=== PATIENT | male | born 1965 | race Caucasian/White ===

== ENCOUNTER 2023-08-27 09:16 | Emergency (ER) | payer OTHER, SELFPAY ==
[2023-08-27 09:41] VITALS: BP 115/76
--- NOTE | 2023-08-27 09:44 | ED.GENMED ---
History of Present Illness
General
Chief Complaint: Musculo-Skeletal Complaint
Time Seen by Provider: 08/27/23 09:43
History of Present Illness
History of Present Illness:
HPI: The patient presents with right knee swelling. There was no direct trauma but he was up and down on a ladder and had more physical activity recently while working at [employer]. There has been no fevers. He takes aspirin for cardiovascular
prevention.
EXAM:
GENERAL: Well appearing in no distress
HEENT: Moist oral mucosa
NEUROLOGIC: Decreased active range of motion at the right knee into flexion and extension due to pain
PSYCHIATRIC: Appropriate mental status, normal insight and judgement
EXTREMITIES: Moderate right knee joint effusion with no overlying warmth or erythema
SKIN: No rash, no lesions
TIME OF INITIAL ENCOUNTER: 10:30 AM
NUMBER AND COMPLEXITY OF PROBLEMS ADDRESSED AT THE ENCOUNTER
� Chronic conditions affecting care: Thyroid disease patient this is an acute problem
� Acute Exacerbation and/or Progression of Chronic Illness: This is an acute problem
� Differential Diagnosis includes: Nonspecific knee joint effusion, meniscal injury, ACL injury, osteoarthritis, periprosthetic distal femur fracture, highly doubt septic joint, hemarthrosis
AMOUNT AND/OR COMPLEXITY OF DATA TO BE REVIEWED AND ANALYZED
� I performed an independent evaluation of and my interpretation is:
EKG:
CT:
X-rays: I personally viewed x-rays and see no acute abnormality
Laboratory Studies: monosodium urate crystals
Other:
� Review of other/old records: I reviewed records�the patient was here with a hip fracture in January 2020
� Clinical information was obtained by an independent historian: Spoke to his partner at bedside
� Prescriptions/Medications Considered but not given:
� Further testing considered but not performed:
RISK OF COMPLICATIONS AND/OR MORBIDITY OR MORTALITY OF PATIENT MANAGEMENT
� Social determinants of health affecting care:
� Discussion with other providers:
� Escalation of care including admission/observation vs risk of discharge considered: The patient had about 80 mL of bloody fluid withdrawn�this was not a traumatic tap and blood was obtained immediately after needle entry.
Monosodium urate crystals noted�I called the patient to inform him of the possibility of gout and recommended NSAIDs. He is to continue holding aspirin. He is to follow-up with orthopedics. We also placed him in Sotero wrap and gave him a walker.
Past History
Past History
ED Past Medical History: Cancer (Thyroid) and Hypothyroidism; Negative Asthma, HTN, Hypercholesterolemia or NIDDM
ED Past Surgical History: Other (total thyroidectomy)
Social History
Tobacco: Smoker
Alcohol: Occasional
Personal:
Living: with family
Employment: Employed
Phy Exam
Physical Exam
Physical Exam:
See HPI
Course
Orders/Labs/Results
Orders:
Orders
08/27/23 09:57
CR Femur - Right Min 2 Vw Urgent
Comment:
Reason For Exam: pain swelling knee
CR Knee- Right 4 Or More View* Urgent
Comment:
Reason For Exam: swelling
08/27/23 11:09
Body Fluid Cell Count Urgent
What is the Body Fluid: joint
Date Specimen was Collected: 08/27/23
Time Specimen was Collected: 11:08
Comment: with DIFF
Body Fluid Crystals Urgent
What is the Body Fluid: joint
Date Specimen was Collected: 08/27/23
Time Specimen was Collected: 11:08
Fluid Culture with Gram Stain Urgent
LEIF Source: Joint Fluid
Specimen Description:
Date Specimen was Collected: 08/27/23
Time Specimen was Collected: 11:08
08/27/23 11:18
Add On- LAB Urgent
Comments:: from joint fluid
Tests Added?: lyme progressive
Vital Signs
Initial and Last Documented VS:
Initial Vital Signs
Temp Pulse Resp Pulse Ox
97.4 F 67 16 98
08/27/23 09:30 08/27/23 09:30 08/27/23 09:30 08/27/23 09:30
Last Documented Vital Signs
Temp Pulse Resp BP Pulse Ox
97.4 F 75 10 126/75 98
08/27/23 09:30 08/27/23 10:00 08/27/23 10:00 08/27/23 10:00 08/27/23 09:30
Procedures
Incision/Drainage/Joint Aspiration
Right Medial Knee:
Preparation: other (chloraprep)
Type of procedure: aspiration
Loculations broken up: No
How much fluid was obtained?: number in mls (80mL)
Fluid description: bloody
Treatment: bandaid applied
*Critical Care Note
Total Time (30-74mins, 75-104mins- exclusive of procedures): Not Applicable
ED Attending Note
-
Portions of this chart may have been created with voice recognition software.� Occasional wrong word or��sound alike� substitutions may have occurred due to the inherent limitations of voice recognition software.
Discharge Plan
Departure
Patient Disposition: Home (Routine Discharge)
Date of Disposition: 08/27/23
Time of Disposition: 11:21
Patient with high blood pressure during this ER visit?: No
Discharge Problem:
Hemarthrosis
Prescriptions:
No Action
levothyroxine 150 MCG tablet
150 mcg PO SUMOTUTHFRSA
[id number] [Osteo Bi-Flex (5-Loxin)] 1 EACH tablet
1 tab PO HS
atorvastatin 20 mg tablet
20 mg PO DAILY Qty: 30 0RF
Referrals:
Prince Aguilar MD [Active] - Follow up in 2-3 days
Sacha Huerta CRNP [Family Provider] -
Activity Restrictions/Additional Instructions:
I removed 80 mL of blood from the right knee. I spoke to Dr. Cheung � please call their office for follow-up. Dr. Cheung is Dr. Aguilar's associate.
Interventions
Interventions:
*Risk Screen - Suicide Last Done: 08/27/23 09:49
*General Assessment Last Done: 08/27/23 11:59
*Neglect/Abuse Screening Last Done: 08/27/23 09:49
*ED COVID-19 Vaccine History Last Done: 08/27/23 09:33
*Nursing Disposition Last Done: 08/27/23 11:59
ED-Musculoskeletal Assessment Last Done: 08/27/23 09:49
Discharge Date and Time
Discharge Date/Time: 08/27/23 12:04
Print Language: [place]
[2023-08-27 10:00] VITALS: BP 126/75
[2023-08-27 11:49] LABS: Body Fluid Mononuclear 46.2 %; Body Fluid Polymorphonuclear 53.8 %; Body Fluid WBC 4670 /CUMM
[2023-08-27 12:04] LABS: Body Fluid Second Tech EF
== END 2023-08-27 12:04 | disposition home or self-care (01) ==
LOC: EMR 09:16
PROVIDERS: EMERGENCY PHYSICIAN Emergency Medicine; FAMILY PHYSICIAN Nurse Practitioner Family
DX: M25.061 Hemarthrosis, right knee (principal); F17.200 Nicotine dependence, unspecified, uncomplicated
CPT/HCPCS: 99283; 20610; 73552; 73564; 87015; 87070; 87205; 89051; 89060